=== PATIENT | male | born 1950 | race Caucasian/White ===

== ENCOUNTER 2017-02-19 09:14 | Emergency (ER) | payer OTHER, BC ==
[2017-02-19 09:32] VITALS: BP 123/77; PULSE 63; TEMP 97.7; BMI 20.7
--- NOTE | 2017-02-19 09:57 | PDOC ---
History of Present Illness - General Chief Complaint: Pain Stated Complaint: RIGHT HIP PAIN History Source: Patient Exam Limitations: No Limitations - History of Present Illness Initial Comments: 02/19/17 09:53 66-year-old male with history of hypertension diabetes A. fib on Coumadin here today complaining of right hip pain status post fall 1 week ago. Patient states he had a fall denies head trauma or LOC at that time has been ablating since his fall however complaining of mild right lateral hip pain. States he has a large bruise up and down the right leg no knee or ankle pain pain is moderate worse with ambulation did not take anything today for the pain patient is concerned that he may have a small fracture here today to have it evaluated has had no prior evaluation to today Past History - Past Medical History Allergies/Adverse Reactions: Allergies Allergy/AdvReac Type Severity Reaction Status Date / Time No Known Allergies Allergy Verified 02/19/17 09:32 Home Medications: Ambulatory Orders Levothyroxine [Synthroid -] 112 mcg PO AM 06/07/15 Atorvastatin Ca [Lipitor] 40 mg PO AM 06/08/15 Losartan Potassium 25 mg PO BID 06/08/15 Propafenone HCl [Rythmol Sr] 325 mg PO BID 06/08/15 Metoprolol Tartrate [Lopressor -] 50 mg PO BID 02/19/17 Warfarin Sodium [Coumadin] 5 mg PO ASDIR 02/19/17 Warfarin Sodium [Coumadin] 7.5 mg PO ASDIR 02/19/17 Cancer: Yes (PROSTATE) Cardiac Disorders: Yes (AFIB) COPD: No Diabetes: Yes - Suicide/Smoking/Psychosocial Hx Smoking History: Never smoked Information on smoking cessation initiated: No Hx Alcohol Use: Yes (4 GLASSES OF WINE /WEEK) Drug/Substance Use Hx: No Substance Use Type: Alcohol Review of Systems - Review of Systems Constitutional: No: Chills, Diaphoresis Respiratory: No: Cough Cardiac (ROS): No: Chest Pain ABD/GI: No: Abdominal Distended : No: Burning, Dysuria Musculoskeletal: Yes: Joint Pain Integumentary: Yes: Other (ecchymosis). No: Bruising All Other Systems: Reviewed and Negative *Physical Exam - Vital Signs Last Vital Signs Temp Pulse Resp BP Pulse Ox 97.7 F 63 20 123/77 96 02/19/17 09:15 02/19/17 09:15 12/16/17 09:15 02/19/17 09:15 02/19/17 09:15 - Physical Exam General Appearance: Yes: Appropriately Dressed HEENT: positive: Normal ENT Inspection, Other (head is atraumatic) Respiratory/Chest: positive: Lungs Clear, Normal Breath Sounds Cardiovascular: positive: Regular Rhythm, Regular Rate, S1, S2 Gastrointestinal/Abdominal: positive: Normal Bowel Sounds, Tender, Flat Musculoskeletal: positive: Other (right lateral trochanteric tenderness at the right hip region. Full range of motion wit extensionand flexion, external and internal rotatin. Knee/ankle NT/FROM) ED Treatment Course - RADIOLOGY Radiology Studies Ordered: Category Date Time Status HIP & PELVIS-RIGHT [RAD] Stat Radiology 02/19/17 09:22 Ordered Medical Decision Making - Medical Decision Making 02/19/17 09:56 Status post fall complaining of right hip pain Differential: Right hip fracture lateral trochanteric fracture contusion. Plan right hip x-ray and reassess pain control as needed. If negative likely outpatient orthopedic follow-up 02/19/17 10:03 X-rays are negative for acute fracture we'll discharge home with Motrin for pain control and follow-up with orthopedics *DC/Admit/Observation/Transfer Diagnosis at time of Disposition: Contusion, hip - Discharge Dispostion Disposition: HOME Condition at time of disposition: Improved Admit: No - Referrals Referrals: Roger Vázquez MD [Staff Physician] - - Patient Instructions Printed Discharge Instructions: Contusion Additional Instructions: Here x-rays are negative for any pelvic or hip fracture. For persistent pain beyond 1 week he may follow up with the orthopedist Dr. Vázquez, see referral information for the phone number and call to schedule. He can take Tylenol 500 mg every 6 hours as needed for pain. Return for any problems or concerns you may ambulate and bear weight on that leg as tolerated - Post Discharge Activity
== END 2017-02-19 10:12 | disposition home or self-care (01) ==
LOC: FER 09:14
DX: I48.91 Unspecified atrial fibrillation (principal); E11.9 Type 2 diabetes mellitus without complications; I10 Essential (primary) hypertension; Z85.46 Personal history of malignant neoplasm of prostate; Z79.01 Long term (current) use of anticoagulants
CPT/HCPCS: 73523-TC; 99282-25

== ENCOUNTER 2019-05-14 16:50 | Emergency (ER) | payer OTHER, BC ==
[2019-05-14 17:06] VITALS: BMI 20.8
--- NOTE | 2019-05-14 17:14 | PDOC ---
History of Present Illness - General Chief Complaint: Injury Stated Complaint: HEAD INJURY Time Seen by Provider: 05/14/19 16:52 - History of Present Illness Initial Comments: Cecil Bradford is a 68 y/o male with PMH significant for a-fib on coumadin, DM, presenting today s/p mechanical fall. Reports that yesterday he tripped and fell on the stairs and hit his forehead/medial orbit. Reports pain over those areas, otherwise no headache. Denies LOC. Denies heart palpitations or dizziness prior to fall. He went to urgent care with a normal neuro exam. Today, he felt a little nauseated with no vomiting, and decided to present to the ED. No vision changes. Pt denies shortness of breath, abdominal pain, back pain, neck pain, leg swelling. Past History - Past Medical History Allergies/Adverse Reactions: Allergies Allergy/AdvReac Type Severity Reaction Status Date / Time No Known Allergies Allergy Verified 05/14/19 16:58 Home Medications: Ambulatory Orders Levothyroxine [Synthroid -] 112 mcg PO AM 06/07/15 Losartan Potassium 25 mg PO DAILY 06/08/15 Propafenone HCl [Rythmol Sr] 325 mg PO BID 06/08/15 Warfarin Sodium [Coumadin] 5 mg PO SUMOWETHFR 02/19/17 Metoprolol Succinate [Toprol Xl] 25 mg PO BID 05/14/19 Warfarin Na [Coumadin] 2.5 mg PO TUTH 05/14/19 Cancer: Yes (PROSTATE) Cardiac Disorders: Yes (AFIB) COPD: No Diabetes: Yes HTN: Yes Hypercholesterolemia: Yes - Psycho Social/Smoking Cessation Hx Smoking History: Never smoked Hx Alcohol Use: Yes (4 GLASSES OF WINE PER WEEK) Drug/Substance Use Hx: No Substance Use Type: Alcohol Review of Systems - Review of Systems Comments:: GENERAL/CONSTITUTIONAL: No fever or chills. No weakness._ HEAD, EYES, EARS, NOSE AND THROAT: No change in vision. No change in hearing. No sore throat. Reports bruising over forehead and medial left orbit. CARDIOVASCULAR: No chest pain or shortness of breath_ RESPIRATORY: Denies cough, hemoptysis_ GASTROINTESTINAL: Reports nausea. No vomiting, diarrhea or constipation._ GENITOURINARY: No dysuria, frequency, or change in urination._ MUSCULOSKELETAL: No joint or muscle swelling or pain. No neck or back pain._ SKIN: No rash_ NEUROLOGIC: No headache, vertigo, loss of consciousness, or change in strength/sensation._ ENDOCRINE: No increased thirst. No abnormal weight change_ HEMATOLOGIC/LYMPHATIC: No anemia, easy bleeding, or history of blood clots._ ALLERGIC/IMMUNOLOGIC: No hives or skin allergy._ *Physical Exam - Vital Signs Last Vital Signs Temp Pulse Resp BP Pulse Ox 97.5 F L 58 L 15 156/95 100 05/14/19 16:51 05/14/19 16:51 05/14/19 16:51 05/14/19 16:51 05/14/19 16:51 - Physical Exam GENERAL: Awake, alert, and oriented to person/place/time, in no acute distress_ HEAD: Bruising over right anterior forehead above the right eyebrow, and right medial orbit. No abreu signs. EYES: PERRLA, EOMI, sclera anicteric, conjunctiva clear_ ENT: Hearing grossly normal, nares patent, oropharynx clear without exudates. No uvular deviation. Moist mucosa_ NECK: Normal ROM, supple, no lymphadenopathy, JVD, or masses. No c-spine TTP. LUNGS: No distress, speaks in full sentences, clear to auscultation bilaterally _ HEART: Regular rate and rhythm, normal S1 and S2, no murmurs appreciated, peripheral pulses normal and equal bilaterally._ ABDOMEN: Soft, nontender, normoactive bowel sounds. No guarding, no rebound. No masses_ EXTREMITIES: Normal inspection, Normal range of motion, no edema. No clubbing or cyanosis_ NEUROLOGICAL: CN II-XII tested and intact. Sensation intact to sharp/dull differentiation in all extremities. Motor: Normal tone and bulk. No abnormal movements appreciated. No pronator drift. Strength tested and 5/5 in bilateral wrist flexion/extension, elbow flexion/extension, shoulder abduction, straight leg raise, knee flexion/extension, ankle dorsiflexion/plantarflexion. Patient ambulates with a steady gait. Coordination: Finger to nose and heel to lomeli testing intact bilaterally. SKIN: Warm, Dry, normal turgor, no rashes or lesions noted_ ED Treatment Course - RADIOLOGY Radiology Studies Ordered: Category Date Time Status HEAD CT WITHOUT CONTRAST [CT] Stat CT Scan 05/14/19 16:[address] W/O CONTRAST [CT] Stat CT Scan 05/14/19 16:58 Ordered Medical Decision Making - Medical Decision Making 05/14/19 17:13 68M hx of afib on coumadin presenting s/p fall. Bruising over left forehead and left medial orbit. -ct head/orbits 05/14/19 18:38 CT head shows no acute intra cranial pathology or hemorrhage. CT orbits show no fracture. 05/14/19 18:43 Pt reassessed. No neuro findings. A&Ox3. Plan to d/c home, with neuro f/u PRN. All questions answered. Return precautions given. Pt verbalized understanding and agreement with plan. Discharge - Discharge Information Problems reviewed: Yes Clinical Impression/Diagnosis: Head injury Qualifiers: Encounter type: initial encounter Qualified Code(s): S09.90XA - Unspecified injury of head, initial encounter Condition: Good Disposition: HOME - Follow up/Referral Referrals: Roger Melgar MD [Staff Physician] - - Patient Discharge Instructions Patient Printed Discharge Instructions: DI for Concussion, DI for Closed Head Injury Additional Instructions: Return to ED for any severe headache weakness numbness vomiting or for any concerns. If still having symptoms for greater than 7 days follow-up with Dr. Melgar neurology. - Post Discharge Activity
--- NOTE | 2019-05-14 17:33 | PDOC ---
Attending Attestation - Resident Resident Name: TalFawad - ED Attending Attestation I have performed the following: I have examined & evaluated the patient, The case was reviewed & discussed with the resident, I agree w/resident's findings & plan, Exceptions are as noted - HPI HPI: 05/14/19 17:31 68 y/o male with PMH significant for a-fib on coumadin, DM, presents status post mechanical fall yesterday afternoon hit his forehead above his left eye went to an urgent care had blood work done and his INR was 2.1 was asymptomatic today has felt intermittently nauseous no headache no photophobia no neck stiffness no weakness numbness no other symptoms. He has developed some interval bruising around his medial left and right orbits no tenderness around the orbits no pain around the orbits - Physicial Exam PE: 05/14/19 17:40 Vitals: Triage Vital signs reviewed General Appearance: No acute distress, well nourished well developed, Head: Atraumatic, Eyes: Pupils equal reactive round, extraocular movement intact Neck: Supple; no Nucal rigidity Chest Wall: Nontender Cardiac: Regular rate and rhythym, no murmurs, no rubs, no gallops, Lungs: Clear to auscultation bilateral, good air movement bilaterally, Extremities: Full range of motion to all extremities, no cyanosis, clubbing, or edema Skin: Warm and dry, no rashes or lesions, no rash, no petechiae Neuro: AOX3; cranial Nerves 2-12 grossly intact, strength intact to all extremities, sensation intact to all extremities, gait normal Psych: Normal mood, normal affect - Medical Decision Making 05/14/19 17:40 Mild nausea status post head injury yesterday given that patient is on Coumadin will CT head and orbits observe and reassess 05/14/19 18:38 Well-appearing no apparent distress history examination consistent with concussion imaging negative normal neurologic exam Strict head injury precautions discussed with patient. Findings, the need for follow-up and strict return instructions discussed with patient. Discharge - Discharge Information Problems reviewed: Yes Clinical Impression/Diagnosis: Head injury Qualifiers: Encounter type: initial encounter Qualified Code(s): S09.90XA - Unspecified injury of head, initial encounter Condition: Good Disposition: HOME - Admission No - Follow up/Referral Referrals: Roger Melgar MD [Staff Physician] - - Patient Discharge Instructions Patient Printed Discharge Instructions: DI for Concussion, DI for Closed Head Injury Additional Instructions: Return to ED for any severe headache weakness numbness vomiting or for any concerns. If still having symptoms for greater than 7 days follow-up with Dr. Melgar neurology. - Post Discharge Activity
[2019-05-14 18:47] VITALS: BP 139/93; PULSE 63; TEMP 98
== END 2019-05-14 18:55 | disposition home or self-care (01) ==
LOC: FER 16:50 → SUPCPDRO 16:50 → FER 18:55
DX: S09.90XA Unspecified injury of head, initial encounter (principal); I48.91 Unspecified atrial fibrillation; Z79.01 Long term (current) use of anticoagulants
CPT/HCPCS: 70450-TC; 70480-TC; 99284-25

== ENCOUNTER 2023-06-26 12:55 | Emergency (ER) | payer OTHER, BC ==
[2023-06-26 13:12] VITALS: TEMP 97.5; BMI 20.7
[2023-06-26 13:52] LABS: INR 2.34 (0.83-1.09); PROTHROMBIN TIME (PATIENT) 26.9 SEC (9.7-13.0)
[2023-06-26 14:07] LABS: HEMATOCRIT 38.4 % (35.4-49); HEMOGLOBIN 12.4 G/dL (11.7-16.9); MCH 30.3 pg (25.7-33.7); MCHC 32.2 g/dl (32.0-35.9); MEAN CELL VOLUME 94.1 fl (80-96); MEAN PLT VOLUME 8.6 fl (7.5-11.1); RBC 4.08 10^6/uL (4.00-5.60); RDW 14.6 % (11.9-15.9); WHITE BLOOD COUNT 7.8 10^3/uL (4.0-10.8)
[2023-06-26 14:11] LABS: ALBUMIN 4.1 g/dl (3.4-5.0); BILIRUBIN,TOTAL 0.5 mg/dl (0.2-1); CREATININE 2.3 mg/dl (0.6-1.3); POTASSIUM 4.8 mmol/L (3.5-5.1); TOT PROT 6.4 g/dl (6.4-8.2)
[2023-06-26 14:35] LABS: PLATELET ESTIMATE ADEQUATE
[2023-06-26] MEDS: SODIUM CHLORIDE 1,000 ML IV STA (14:35)
[2023-06-26 15:09] VITALS: BP 123/76; PULSE 73; RESP 16
== END 2023-06-26 15:18 | disposition home or self-care (01) ==
LOC: FER 12:55
PROC: 3E0337Z Introduction of Electrolytic and Water Balance Substance into Peripheral Vein, Percutaneous Approach (ICD-10-PCS; principal; 2023-06-26)
DX: R11.0 Nausea (principal); I12.9 Hypertensive chronic kidney disease with stage 1 through stage 4 chronic kidney disease, or unspecified chronic kidney disease; E11.22 Type 2 diabetes mellitus with diabetic chronic kidney disease; N18.9 Chronic kidney disease, unspecified; T50.995A Adverse effect of other drugs, medicaments and biological substances, initial encounter
CPT/HCPCS: 36415; 71045-TC-FY; 80053; 84484; 85027; 85610; 93005; 99285-25

== ENCOUNTER 2023-09-23 17:56 | Inpatient (IN) | payer OTHER, BC ==
[2023-09-23 18:57] LABS: PROTHROMBIN TIME (PATIENT) 33.1 SEC (9.7-13.0)
[2023-09-23 19:00] LABS: ACTIVATED PTT 51.4 SECONDS (25.2-36.5)
[2023-09-23] MEDS ORDERED: DEXAMETHASONE SOD PHOSPHATE 10 MG/1 ML VIAL ONE (19:02)
[2023-09-23] MEDS: DEXAMETHASONE SOD PHOSPHATE 10 MG/1 ML VIAL IVPUSH STA (19:05)
[2023-09-23] MEDS: SODIUM CHLORIDE 0.9% 500 ML INFUS.BAG IV ONE (19:05)
[2023-09-23 19:10] LABS: HEMATOCRIT 34.2 % (35.4-49); HEMOGLOBIN 11.3 G/dL (11.7-16.9); MCH 30.4 pg (25.7-33.7); MCHC 32.9 g/dl (32.0-35.9); MEAN CELL VOLUME 92.3 fl (80-96); MEAN PLT VOLUME 9.4 fl (7.5-11.1); PLATELET COUNT 96.6 10^3/uL (134-434); RDW 14.4 % (11.9-15.9)
[2023-09-23 19:20] LABS: ALBUMIN 3.1 g/dl (3.4-5.0); ALK PHOS 41 U/L (45-117); ANION GAP 11 mmol/L (4-13); BILIRUBIN,TOTAL 0.8 mg/dl (0.2-1); CALCIUM 7.5 mg/dl (8.5-10.1); CHLORIDE 99 mmol/L (98-107); CO2 21 mmol/L (21-32); GLUCOSE,RANDOM 191 mg/dl (74-106); POTASSIUM 4.6 mmol/L (3.5-5.1); SGOT/AST 66 U/L (15-37); SGPT/ALT 41 U/L (7-52); SODIUM 131 mmol/L (136-145); TOT PROT 5.1 g/dl (6.4-8.2)
[2023-09-23 19:23] LABS: WHITE BLOOD COUNT 1.1 10^3/uL (4.0-10.8)
[2023-09-23 19:51] LABS: PLATELET ESTIMATE SLT DECREASE
[2023-09-23 20:06] LABS: VENOUS BASE EXCESS -4.5 mmol/L (-2-2); VENOUS O2 SATURATION 75.1 % (70-80); VENOUS PCO2 34.2 mmHg (38-52); VENOUS PH 7.383 (7.310-7.410)
[2023-09-24] MEDS: SODIUM CHLORIDE 1,000 ML IV SCH ×2 (01:36→02:49)
[2023-09-24] MEDS: metoPROLOL SUCCINATE 25 MG TAB.SR.24H (FP) PO SCH (02:20)
[2023-09-24] MEDS: ALBUTEROL SO4 HFA INHALER IH SCH (02:21)
[2023-09-24] MEDS: PROPAFENONE HCL 325 MG PO SCH ×2 (02:22→12:42)
[2023-09-24 05:38] LABS: EPI CELLS 9 /uL (0-25.1); HYALINE CASTS 1 /uL (0-3.1); PH,URINE 5.5 (5.0-8.0); URINE APPEARANCE CLEAR; URINE BACTERIA 5 /uL (0-1359); URINE BILIRUBIN NEGATIVE (NEGATIVE); URINE COLOR YELLOW; URINE GLUCOSE (UA) 3+ (NEGATIVE); URINE KETONE NEGATIVE (NEGATIVE); URINE LEUK ESTERASE NEGATIVE (NEGATIVE); URINE NITRITE NEGATIVE (NEGATIVE); URINE PROTEIN 2+ (NEGATIVE); URINE RBC 15 /uL (0-23.9); URINE UROBILINOGEN 0.2 mg/dL (0.2-1.0); URINE WBC 17 /uL (0-25.8)
[2023-09-24] MEDS: LEVOTHYROXINE NA 112 MCG TABLET (FP) PO SCH (06:26)
[2023-09-24 08:50] LABS: INR 3.13 (0.83-1.09); PROTHROMBIN TIME (PATIENT) 34.8 SEC (9.7-13.0)
[2023-09-24 08:51] LABS: HEMATOCRIT 28.9 % (35.4-49); HEMOGLOBIN 9.9 GM/dL (11.7-16.9); MCH 31.1 pg (25.7-33.7); MCHC 34.3 g/dl (32.0-35.9); MEAN CELL VOLUME 90.7 fl (80-96); MEAN PLT VOLUME 8.9 fl (7.5-11.1); PLATELET COUNT 89 10^3/uL (134-434); RBC 3.19 M/mm3 (4.00-5.60); RDW 13.9 % (11.9-15.9)
[2023-09-24 09:01] LABS: POTASSIUM 4.8 mmol/L (3.5-5.1)
[2023-09-24 09:04] LABS: WHITE BLOOD COUNT 1.5 K/mm3 (4.0-10.0)
[2023-09-24 09:05] LABS: BLOOD UREA NITROGEN 63.3 mg/dL (7-18)
[2023-09-24 09:08] LABS: CREATININE 3.4 mg/dL (0.55-1.3)
[2023-09-24 09:11] LABS: BILIRUBIN,TOTAL 0.8 mg/dL (0.2-1); TOT PROT 4.9 g/dl (6.4-8.2)
[2023-09-24 09:14] LABS: N-TERMINAL BNP 4557.7 pg/ml (5-125)
[2023-09-24 09:23] LABS: YEAST NONE SEEN (NEGATIVE)
[2023-09-24 10:18] LABS: ANISOCYTOSIS 0; MACROCYTOSIS 0
[2023-09-24] MEDS: REMDESIVIR 200 MG in SODIUM CHLORIDE 250 ML IVPB ONE (10:41)
[2023-09-24] MEDS: DEXAMETHASONE 4 MG TABLET (FP) PO SCH (10:41)
[2023-09-24] MEDS: EZETIMIBE 10 MG TABLET (FP) PO SCH (10:41)
[2023-09-24] MEDS: FLUTICASONE PROP 0.05% 16 GM NASAL SPRAY NS SCH (12:42)
[2023-09-24] MEDS: ACETAMINOPHEN 325 MG TABLET (FP) PO PRN (15:24)
[2023-09-24] MEDS: CEFTRIAXONE 1 GM in DEXTROSE 5%-WATER - 50 ML IVPB SCH (17:11)
[2023-09-24] MEDS: DOXYCYCLINE INJECTION 100 MG in DEXTROSE 5%-WATER 100 ML IVPB SCH (17:11)
[2023-09-24] MEDS: ATORVASTATIN CA 40 MG TABLET (FP) PO SCH (21:15)
[2023-09-24] MEDS: CEFEPIME 1 GM in DEXTROSE 5%-WATER - 50 ML IVPB SCH (21:17)
[2023-09-24] MEDS ORDERED: CEFEPIME HCL 1 GM VIAL (RESTRICTED TO ID) IVPB SCH (22:00)
[2023-09-25 07:15] LABS: POTASSIUM 4.5 mmol/L (3.5-5.1)
[2023-09-25 07:18] LABS: CALCIUM 7.7 mg/dL (8.5-10.1)
[2023-09-25 07:19] LABS: ALBUMIN 1.8 g/dl (3.4-5.0); BLOOD UREA NITROGEN 68.4 mg/dL (7-18); MAGNESIUM 2.3 mg/dL (1.8-2.4)
[2023-09-25 07:22] LABS: CREATININE 3.1 mg/dL (0.55-1.3); PHOSPHOROUS 2.6 mg/dL (2.5-4.9)
[2023-09-25 07:23] LABS: BILIRUBIN,TOTAL 0.6 mg/dL (0.2-1); TOT PROT 4.8 g/dl (6.4-8.2)
[2023-09-25 08:14] LABS: INR 3.22 (0.83-1.09); PROTHROMBIN TIME (PATIENT) 35.2 SEC (9.7-13.0)
[2023-09-25 08:37] LABS: HEMATOCRIT 28.6 % (35.4-49); HEMOGLOBIN 9.8 GM/dL (11.7-16.9); MCH 30.8 pg (25.7-33.7); MCHC 34.4 g/dl (32.0-35.9); MEAN CELL VOLUME 89.5 fl (80-96); MEAN PLT VOLUME 8.9 fl (7.5-11.1); PLATELET COUNT 109 10^3/uL (134-434); RBC 3.19 M/mm3 (4.00-5.60); WHITE BLOOD COUNT 4.4 K/mm3 (4.0-10.0)
[2023-09-25 09:29] LABS: ANISOCYTOSIS 0; MACROCYTOSIS 0
[2023-09-25] MEDS: CEFTRIAXONE 2 GM in DEXTROSE 5%-WATER 100 ML IVPB SCH (09:53)
[2023-09-25] MEDS: REMDESIVIR 100 MG in SODIUM CHLORIDE 250 ML IVPB SCH (09:54)
[2023-09-25] MEDS: DEXAMETHASONE SOD PHOSPHATE 10 MG/1 ML VIAL IVPUSH SCH (09:55)
[2023-09-25 14:33] VITALS: BMI 22.4
[2023-09-26 08:17] LABS: HEMATOCRIT 28.5 % (35.4-49); HEMOGLOBIN 9.7 GM/dL (11.7-16.9); MCH 30.9 pg (25.7-33.7); MCHC 34.1 g/dl (32.0-35.9); MEAN CELL VOLUME 90.4 fl (80-96); MEAN PLT VOLUME 8.6 fl (7.5-11.1); PLATELET COUNT 126 10^3/uL (134-434); RBC 3.16 M/mm3 (4.00-5.60); RDW 14.2 % (11.9-15.9); WHITE BLOOD COUNT 7.7 K/mm3 (4.0-10.0)
[2023-09-26 08:33] LABS: POTASSIUM 5.2 mmol/L (3.5-5.1)
[2023-09-26 08:37] LABS: CALCIUM 8.2 mg/dL (8.5-10.1)
[2023-09-26 08:38] LABS: ALBUMIN 1.8 g/dl (3.4-5.0); BLOOD UREA NITROGEN 83.2 mg/dL (7-18); MAGNESIUM 2.5 mg/dL (1.8-2.4)
[2023-09-26 08:41] LABS: CREATININE 2.9 mg/dL (0.55-1.3); PHOSPHOROUS 3.4 mg/dL (2.5-4.9)
[2023-09-26 08:42] LABS: BILIRUBIN,TOTAL 0.4 mg/dL (0.2-1); TOT PROT 4.8 g/dl (6.4-8.2)
[2023-09-26 10:42] LABS: PLATELET ESTIMATE SLT DECREASE
[2023-09-26] MEDS: SODIUM ZIRCONIUM CYCLOSILICATE (LOKELMA) 5 GM PACKET PO SCH (10:52)
[2023-09-26] MEDS: INSULIN ASPART SLIDING SCALE (NOVOLOG) 1 VIAL SQ SCH (11:12)
[2023-09-26 11:37] LABS: PROTHROMBIN TIME (PATIENT) 54.7 SEC (9.7-13.0)
[2023-09-26 11:55] LABS: INR 4.98 (0.83-1.09)
[2023-09-26] MEDS: PHYTONADIONE 5 MG TABLET PO ONE (14:51)
[2023-09-27 09:22] LABS: INR 2.1 (0.83-1.09); PROTHROMBIN TIME (PATIENT) 23.2 SEC (9.7-13.0)
[2023-09-27 09:23] LABS: HEMATOCRIT 29.7 % (35.4-49); MCH 30.7 pg (25.7-33.7); MCHC 33.7 g/dl (32.0-35.9); MEAN CELL VOLUME 91.2 fl (80-96); MEAN PLT VOLUME 8.9 fl (7.5-11.1); PLATELET COUNT 174 10^3/uL (134-434); RBC 3.26 M/mm3 (4.00-5.60); WHITE BLOOD COUNT 10.2 K/mm3 (4.0-10.0)
[2023-09-27 09:44] LABS: POTASSIUM 4.5 mmol/L (3.5-5.1)
[2023-09-27 09:54] LABS: BLOOD UREA NITROGEN 92.2 mg/dL (7-18); CALCIUM 8.6 mg/dL (8.5-10.1)
[2023-09-27 09:55] LABS: MAGNESIUM 2.3 mg/dL (1.8-2.4)
[2023-09-27 09:56] LABS: BILIRUBIN,TOTAL 0.4 mg/dL (0.2-1); TOT PROT 5.1 g/dl (6.4-8.2)
[2023-09-27 09:57] LABS: CREATININE 2.7 mg/dL (0.55-1.3)
[2023-09-27 09:58] LABS: PHOSPHOROUS 4.2 mg/dL (2.5-4.9)
[2023-09-27 10:22] LABS: PLATELET ESTIMATE ADEQUATE
[2023-09-27] MEDS: BISACODYL 10 MG SUPP.RECT PR ONE (14:09)
[2023-09-27 20:55] LABS: INR 1.88 (0.83-1.09); PROTHROMBIN TIME (PATIENT) 20.9 SEC (9.7-13.0)
[2023-09-27] MEDS: metoPROLOL SUCCINATE 25 MG TAB.SR.24H (FP) PO SCH (21:20)
[2023-09-27] MEDS: INSULIN (LEVEMIR) 100 UNITS/ML UNITS SQ SCH (21:21)
[2023-09-27 21:52] VITALS: RESP 18
[2023-09-28] MEDS ORDERED: INSULIN (LEVEMIR) 100 UNITS/ML UNITS SQ SCH ×2 (03:41→06:19)
[2023-09-28] MEDS: DEXTROSE 5%-WATER - 1,000 ML IV SCH (04:29)
[2023-09-28 06:52] LABS: HEMATOCRIT 30.8 % (35.4-49); HEMOGLOBIN 10.4 GM/dL (11.7-16.9); MCH 30.7 pg (25.7-33.7); MCHC 33.7 g/dl (32.0-35.9); MEAN CELL VOLUME 91.1 fl (80-96); MEAN PLT VOLUME 8.5 fl (7.5-11.1); PLATELET COUNT 201 10^3/uL (134-434); RBC 3.39 M/mm3 (4.00-5.60); RDW 13.9 % (11.9-15.9); WHITE BLOOD COUNT 9.8 K/mm3 (4.0-10.0)
[2023-09-28 07:07] LABS: INR 1.85 (0.83-1.09); PROTHROMBIN TIME (PATIENT) 20.5 SEC (9.7-13.0)
[2023-09-28 07:09] LABS: POTASSIUM 4.5 mmol/L (3.5-5.1)
[2023-09-28 07:11] LABS: CALCIUM 8.3 mg/dL (8.5-10.1)
[2023-09-28 07:12] LABS: ALBUMIN 2.1 g/dl (3.4-5.0)
[2023-09-28 07:15] LABS: CREATININE 2.6 mg/dL (0.55-1.3)
[2023-09-28 07:16] LABS: BILIRUBIN,TOTAL 0.4 mg/dL (0.2-1); TOT PROT 5.2 g/dl (6.4-8.2)
[2023-09-28 09:14] LABS: PLATELET ESTIMATE ADEQUATE
[2023-09-28] MEDS ORDERED: ENOXAPARIN NA (PORCINE) 40 MG/0.4 ML DISP.SYRIN SQ SCH (10:00)
[2023-09-28] MEDS: INSULIN ASPART SLIDING SCALE (NOVOLOG) 1 VIAL SQ SCH (12:17)
[2023-09-28] MEDS: WARFARIN NA 2.5 MG TABLET PO SCH (17:22)
[2023-09-28] MEDS: NYSTATIN 500,000 UNITS/5 ML SUSPENSION PO SCH (17:22)
[2023-09-28] MEDS ORDERED: DEXTROSE 50%-WATER 25 GM/50 ML DISP.SYRIN IVPUSH PRN (19:13)
[2023-09-29 05:59] VITALS: TEMP 97.6
[2023-09-29 06:25] LABS: HEMOGLOBIN 10.1 GM/dL (11.7-16.9); MCH 30.6 pg (25.7-33.7); MCHC 33.6 g/dl (32.0-35.9); MEAN CELL VOLUME 91.2 fl (80-96); MEAN PLT VOLUME 8.2 fl (7.5-11.1); PLATELET COUNT 223 10^3/uL (134-434); RBC 3.29 M/mm3 (4.00-5.60); RDW 13.9 % (11.9-15.9); WHITE BLOOD COUNT 11.3 K/mm3 (4.0-10.0)
[2023-09-29 06:37] LABS: POTASSIUM 4.8 mmol/L (3.5-5.1)
[2023-09-29 06:39] LABS: ALBUMIN 2.1 g/dl (3.4-5.0); CALCIUM 8.2 mg/dL (8.5-10.1)
[2023-09-29 06:40] LABS: BLOOD UREA NITROGEN 76.4 mg/dL (7-18)
[2023-09-29 06:42] LABS: CREATININE 2.3 mg/dL (0.55-1.3)
[2023-09-29 06:44] LABS: BILIRUBIN,TOTAL 0.6 mg/dL (0.2-1); TOT PROT 5.4 g/dl (6.4-8.2)
[2023-09-29 07:00] LABS: INR 1.57 (0.83-1.09); PROTHROMBIN TIME (PATIENT) 17.5 SEC (9.7-13.0)
[2023-09-29 09:32] LABS: ANISOCYTOSIS 0; HELMET CELLS 0; HOWELL-JOLLY BODIES 0; MACROCYTOSIS 0; OVALOCYTE 0; ROULEAU 0; SICKELED CELLS 0; TARGET CELLS 0; TEAR DROP CELLS 0; TOXIC GRANULATION 0
[2023-09-29 14:31] VITALS: BP 109/68; PULSE 66
== END 2023-09-29 17:22 | disposition home or self-care (01) | DRG 177 ==
LOC: FER 17:56 → J4S 23:45 → FER 09-24 00:02
PROVIDERS: ADMIT Internal Medicine; ATTEND Internal Medicine
PROC: 3E0333Z Introduction of Anti-inflammatory into Peripheral Vein, Percutaneous Approach (ICD-10-PCS; 2023-09-23)
PROC: XW033E5 Introduction of Remdesivir Anti-infective into Peripheral Vein, Percutaneous Approach, New Technology Group 5 (ICD-10-PCS; principal; 2023-09-25)
DX: U07.1 COVID-19 (principal); J12.82 Pneumonia due to coronavirus disease 2019; J13 Pneumonia due to Streptococcus pneumoniae; J96.01 Acute respiratory failure with hypoxia; N17.9 Acute kidney failure, unspecified; D61.818 Other pancytopenia; I24.89 Other forms of acute ischemic heart disease; M62.82 Rhabdomyolysis; B37.0 Candidal stomatitis; C90.00 Multiple myeloma not having achieved remission; D68.9 Coagulation defect, unspecified; E78.5 Hyperlipidemia, unspecified; E03.9 Hypothyroidism, unspecified; I48.0 Paroxysmal atrial fibrillation; E11.65 Type 2 diabetes mellitus with hyperglycemia; R00.0 Tachycardia, unspecified; D64.9 Anemia, unspecified; E87.5 Hyperkalemia; D69.6 Thrombocytopenia, unspecified; D47.2 Monoclonal gammopathy; I12.9 Hypertensive chronic kidney disease with stage 1 through stage 4 chronic kidney disease, or unspecified chronic kidney disease; E11.22 Type 2 diabetes mellitus with diabetic chronic kidney disease; N18.9 Chronic kidney disease, unspecified; R19.7 Diarrhea, unspecified; R51.9 Headache, unspecified; Z85.46 Personal history of malignant neoplasm of prostate; Z85.850 Personal history of malignant neoplasm of thyroid
CPT/HCPCS: 0241U-QW; 36415; 70450-TC; 71045-TC-FY; 72125-TC; 76775-TC; 80053; 81003; 82550; 82553; 82570; 82803; 82962; 83036; 83605; 83735; 83880; 83935; 84100; 84300; 84484; 85025; 85027; 85610; 85730; 86140; 87040; 87086; 87899; 88300-TC; 93005; 94010; 94761; 97116-GP; 99285-25; J0248; J1100